=== PATIENT | female | born 1980 | race Caucasian/White ===

== ENCOUNTER 2016-12-15 16:38 | Emergency (ER) | payer BC, OTHER ==
[2016-12-15 17:03] LABS: APPEARANCE,URINE Cloudy (CLEAR); COLOR,URINE Yellow (YELLOW); OCCULT BLOOD,URINE 1+ (NEGATIVE); PH URINE 5.5 (5.0 - 8.0); UROBILINOGEN URINE 0.2 Eu (0.2-1.0)
[2016-12-15 17:11] LABS: AMORPHOUS SEDIMENT,UR FEW (NEGATIVE)
[2016-12-15] MEDS ORDERED: KETOROLAC TROMETHAMINE 60 MG/2 ML VIAL ONE (18:21)
[2016-12-15 18:33] LABS: BASOPHILS % 0.5 (0.0-1.5); EOSINOPHILS % 1.7 % (0.0-6.8); MEAN CORPUSCULAR HEMOGLOBIN 30.2 pg (28.0-34.0); MEAN CORPUSCULAR VOLUME 90.4 fl (80.0-100.0); MONOCYTES % 3.5 % (0.0-11.0); NEUTROPHILS # 9.5 # k/uL (1.4-7.7)
[2016-12-15] MEDS: KETOROLAC TROMETHAMINE 60 MG/2 ML VIAL IM ONE (18:50)
[2016-12-15 18:53] LABS: eGFR (African) > 60; eGFR (Non-African) > 60
--- NOTE | 2016-12-15 19:31 | ED Physician Documentation ---
Abdominal Pain - HISTORIAN Historian: patient - HPI Stated Complaint: Lower Abdominal Pain Chief Complaint: Abdominal Pain Additonal Information: llq and lt inguinal abd pain onset last noct has freq uti but"this is not like any uti I have ever had" bowels ok ua freq urgency and burning with ua. menses unusual 1 week ago. nausea but no emesis bkowels ok. pain is throbbing Onset: days ago (1) Duration: constant, waxing, waning Timing: worse Context: denies: out of country travel, bad food Severity: moderate, severe ("but I am a weenie") Quality: aching, dull, burning, cramping, sharp Associated Symptoms: nausea. denies: fever, chills, vomiting - ROS CONST: no problems. denies: recent illness GI/: dark urine CVS/RESP: none EYES/ENT: none MS/SKIN/LYMPH: none NEURO/PSYCH: none, anxiety - SOCIAL HX Smoking History: greater than 1 pack/day Alcohol Use: rarely Drug Use: none - FAMILY HX Family History: none - PAST HX Past History: bladder infection, kidney infection Other History: other (pt is morbidly obese w/large panus abdomen) Surgeries/Procedures: BLT Home Medications: Ambulatory Orders Medication Instructions Recorded Cetirizine HCl [Zyrtec] 10 mg PO DAILY 03/09/15 Montelukast Sodium [Singulair] 10 mg PO HS 03/09/15 Fluoxetine HCl 20 mg PO D 09/02/15 Hydrochlorothiazide 25 mg PO DAILY 12/15/16 [Hydrochlorothiazide] Hydroxyzine HCl 50 mg PO DAILY 12/15/16 Allergies/Adverse Reactions: Allergies Allergy/AdvReac Type Severity Reaction Status Date / Time oxycodone HCl [From Percocet] AdvReac Vomiting Verified 12/15/16 17:06 - VITAL SIGNS Vital Signs: Vital Signs Temp Pulse Resp BP Pulse Ox 164/95 03/29/16 22:58 - REVIEWED ASSESSMENTS Nursing Assessment Reviewed: Yes Vitals Reviewed: Yes ED Results Lab/Radiology - Lab Results Lab Results: Lab Results 12/15/16 12/15/16 12/15/16 18:25 18:25 18:25 WBC 12.80 K/ul H K/ul (4.00-12.00) RBC 4.81 M/ul M/ul (3.90-5.20) Hgb 14.5 g/dL g/dL (12.0-16.0) Hct 43.5 % % (34.5-46.5) MCV 90.4 fl fl (80.0-100.0) MCH 30.2 pg pg (28.0-34.0) MCHC 33.4 g/dL g/dL (30.0-36.0) RDW 14.1 % % (11.3-14.3) Plt Count 200 K/mm3 K/mm3 (130-400) Neut % (Auto) 74.2 % % (39.0-79.0) Lymph % (Auto) 18.4 % % (16.0-50.0) [place] % (Auto) 3.5 % % (0.0-11.0) Eos % (Auto) 1.7 % % (0.0-6.8) Baso % (Auto) 0.5 (0.0-1.5) Neut # 9.5 # k/uL H # k/uL (1.4-7.7) Lymph # 2.4 # k/uL # k/uL (0.6-4.0) Norton # 0.4 # k/uL # k/uL (0.0-0.9) Eos # 0.2 # k/uL # k/uL (0.0-0.6) Baso # 0.1 # k/uL # k/uL (0.0-0.5) Reactive Lymphs % 1.6 % % (0.0-5.0) Reactive Lymphs # 0.2 # k/uL # k/uL (0.0-0.8) Sodium 138 mmol/L mmol/L (136-145) Potassium 4.1 mmol/L mmol/L (3.5-5.0) Chloride 105 mmol/L mmol/L (98-110) Carbon Dioxide 30 mmol/L mmol/L (20-32) BUN 15 mg/dL mg/dL (10-26) Creatinine 0.5 mg/dL mg/dL (0.4-1.5) Estimated Creat Clear 385 Est GFR ( Amer) > 60 (60 - ) Est GFR (Non-Af Amer) > 60 (60 - ) Glucose 106 mg/dL H mg/dL (70-99) Calcium 9.3 mg/dL mg/dL (8.5-10.5) Total Bilirubin 0.3 mg/dL mg/dL (0.2-1.2) AST 21 U/L U/L (0-41) ALT 24 U/L U/L (0-45) Alkaline Phosphatase 85 U/L U/L (46-116) Total Protein 7.3 g/dL g/dL (6.0-8.5) Albumin 4.5 g/dL g/dL (3.0-5.5) Amylase 34 U/L U/L (20-104) Serum HCG, Qual Negative (NEGATIVE) Urine Color Urine Appearance Urine pH Ur Specific [place] Urine Protein Urine Ketones Urine Occult Blood Urine Nitrite Urine Bilirubin Urine Urobilinogen Ur Leukocyte Esterase Urine RBC Urine WBC Urine WBC Clumps Ur Squamous Epith Cells Amorphous Sediment Urine Bacteria Urine Glucose 12/15/16 17:00 WBC RBC Hgb Hct MCV MCH MCHC RDW Plt Count Neut % (Auto) Lymph % (Auto) [place] % (Auto) Eos % (Auto) Baso % (Auto) Neut # Lymph # Norton # Eos # Baso # Reactive Lymphs % Reactive Lymphs # Sodium Potassium Chloride Carbon Dioxide BUN Creatinine Estimated Creat Clear Est GFR ( Amer) Est GFR (Non-Af Amer) Glucose Calcium Total Bilirubin AST ALT Alkaline Phosphatase Total Protein Albumin Amylase Serum HCG, Qual Urine Color Yellow (YELLOW) Urine Appearance Cloudy (CLEAR) Urine pH 5.5 (5.0 - 8.0) Ur Specific [place] 1.020 (1.010-1.030) Urine Protein 1+ mg/dL H mg/dL (NEGATIVE) Urine Ketones Negative mg/dL mg/dL (NEGATIVE) Urine Occult Blood 1+ H (NEGATIVE) Urine Nitrite Positive (NEGATIVE) Urine Bilirubin Negative (NEGATIVE) Urine Urobilinogen 0.2 Eu Eu (0.2-1.0) Ur Leukocyte Esterase 1+ H (NEGATIVE) Urine RBC 2-5 H (0-2 HPF) Urine WBC 10-25 H (0-5 HPF) Urine WBC Clumps Present H (NEGATIVE) Ur Squamous Epith Cells Few (NEG-FEW) Amorphous Sediment Few H (NEGATIVE) Urine Bacteria Moderate H (NEGATIVE) Urine Glucose Negative mg/dL mg/dL (NEGATIVE) - Orders Orders: ED Orders Category Date Time Status US ABDOMEN LIMITED [US] Stat Exams 12/15/16 Ordered AMYLASE Routine Lab 12/15/16 18:25 Completed CBC/PLATELET/DIFF Routine Lab 12/15/16 18:25 Completed CMP Routine Lab 12/15/16 18:25 Completed SERUM HCG Routine Lab 12/15/16 18:25 Completed URINALYSIS Routine Lab 12/15/16 Ordered URINALYSIS Routine Lab 12/15/16 17:00 Completed URINE CULTURE Routine Lab 12/15/16 17:00 Received Ketorolac Tromethamine [Toradol] Med 12/15/16 18:21 Discontinued 60 mg .ROUTE .STK-MED ONE Ketorolac Tromethamine [Toradol] Med 12/15/16 18:29 Discontinued 60 mg IM NOW ONE Abdominal Pain Physical Exam - Physical Exam General Appearance: moderate distress, anxious EENT: eye inspection normal, ENT inspection normal NECK: normal inspection, thyroid normal, supple RESPIRATORY: no resp distress, chest non-tender, breath sounds normal CVS: reg rate & rhythm, heart sounds normal ABDOMEN: soft. No: non-tender, tenderness (marked llq-inguinal area-huge panus abdomen) BACK: normal inspection, no CVA tenderness, other (renal punch mildly pos on lt) . No: CVA tenderness (R), CVA tenderness (L) EXTREMITIES: non-tender, normal range of motion NEURO: oriented X3, motor nml, sensation nml, depressed mood/affect Vital Signs: Vital Signs Temp Pulse Resp BP Pulse Ox 164/95 03/29/16 22:58 Discharge Clincal Impression: un dx abd pain, UTI (urinary tract infection) Referrals: Ortiz Glover [Primary Care Provider] - 2 Days Home Medications: Ambulatory Orders Cetirizine HCl [Zyrtec] 10 mg PO DAILY 03/09/15 Montelukast Sodium [Singulair] 10 mg PO HS 03/09/15 Fluoxetine HCl 20 mg PO D 09/02/15 Hydrochlorothiazide [Hydrochlorothiazide] 25 mg PO DAILY 12/15/16 Hydroxyzine HCl 50 mg PO DAILY 12/15/16 Comments: we discussed doing ct abdomen--us not available. pt preferss tx uti and will see pcp tomorrow Condition: Good Disposition: 01 HOME, SELF-CARE Decision to Admit: NO Decision Time: 19:31
[2016-12-15 20:04] VITALS: BP 142/68
== END 2016-12-15 19:40 | disposition home or self-care (01) ==
LOC: ED 16:38
DX: N39.0 Urinary tract infection, site not specified (principal); R10.9 Unspecified abdominal pain
CPT/HCPCS: 80053; 81002; 82150; 84703; 85025; 87086; 87186; J1885; 96372; 99283